=== PATIENT | male | born 1960 | race Caucasian/White ===

== ENCOUNTER → 2017-08-16 | Day surgery (SDC) | payer OTHER ==
[~2017-08-16] VITALS: Ht 182.9 cm; Wt 122.5 kg
[~2017-08-16] MED LIST: ACET2SOL7; ACETAMINOPHEN 325 MG TAB PO PRN; ANSHCS; ASPI81TA28 PO; ATEN-174 PO; ATROPINE SULFATE 0.1 MG/ML 10 ML SYR IV PRN; FENTANYL CITRATE INJ 50 MCG/1 ML 2 ML VIAL ONE; FLUT0.15; HEPARIN SOD (PORCINE) 1000 UNIT/ML 10 ML VIAL ONE; HYDR2.5C37 TOP; HYT/2 PO; LORA-741 PO; METH500T3 PO; MIDAZOLAM HCL 1 MG/ML 2ML VIAL ONE; NITROGLYCERIN/D5W 100MCG/ML 20ML SYR ONE; NXM/40 PO; NiCARDipine HCL INJ 2.5 MG/ML 10 ML AMP ONE; POLY1POW2 PO; ROSU20TA PO; SODIUM CHLORIDE 0.9% 1000ML 1,000 ML IV SCH; SODIUM CHLORIDE 0.9% 1000ML 250 ML IV PRN; TRMCR515 TOP; [UNRECOGNIZED DRUG - CODE] PO
[2017-08-16 10:28] VITALS: BP 148/88; PULSE 60; TEMP 36.8; O2SAT 98; Ht 182.9 cm; Wt 122.5 kg
--- NOTE | 2017-08-16 12:53 | History & Physical Bridge Note ---
H&P Re-Evaluation Bridge Note: I have examined the patient, reviewed the History & Physical and in the interval since the performance of the History & Physical I have noted the following changes of clinical significance: No changes noted
--- NOTE | 2017-08-16 12:54 | Procedure Note ---
Pre-Mod Sedation Assessment General Date of Moderate Sedation: Aug 16, 2017. Vital Signs: Vital Signs Past 12 Hours Date Time Temp Pulse Resp B/P (MAP) Pulse Ox O2 Delivery O2 Flow Rate FiO2 08/16/17 10:28 36.8 60 16 148/88 98 Room Air Review Airway Class: III Pre-Sedation Airway Assessment Oral Cavity: WNL Able to Visualize Vocal Cords: Yes Short Thick Neck: No Hx of Sleep Apnea: No Smoking Status: Former Smoker Mallampati Classification: Class III ASA Classification: Class III Procedure Planning Contraindications-for Mod Sed: None Yes Notes The planned sedation has been discussed with the patient and consent obtained. I have identified the patient, determined the appropriateness of sedation and have assessed the patient immediately prior to the procedure. All medicine(s) and interventions are by my order.
--- NOTE | 2017-08-16 13:13 | [facility] Post Operative Brief Note ---
Preliminary Procedure Note Procedure Date Aug 16, 2017. 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 Jorge A Schaefer Shipping Hand(s) Janes Nair Estimated Blood Loss <15cc Medication(s) Fentanyl (12.5 mcg IV), Heparin (5000u IV), Nicardipine (250mcg intraarterial after sheath insertion), Versed (1 mg IV), Lidocaine 1% (local infiltration) Preliminary Findings Right dominant coronary anatomy with large caliber vessels Smooth 30% early mid LAD stenosis with mild irregularities otherwise LCX 20% ostial taper RCA mild irregularities only LV EF65% w/o WMA EDP9 Recommendations Medical therapy and/or Counseling Specimens None Anesthesia Start 12:29 Stop 12:49 Monitor Shamar Coppola RN Procedural Complication(s) None
--- NOTE | 2017-08-16 13:22 | Cardiac Catheterization ---
Procedure Note Procedure Date Aug 16, 2017. Pre-Procedure Diagnosis CAD, Cardiothoracic Symptom AUC Score 7 Post-Procedure Diagnosis Mild CAD Procedure(s) Performed Coronary Angiography, Left Heart Cath, LV Angiography Bench Hand Machine Dr. Jorge A Schaefer Line Fisher(s) None (Janes Nair) Estimated Blood Loss <15cc Medication(s) Fentanyl (12.5mcgIV), Heparin (5000u IV), Versed (1mg IV), Lidocaine 1% (local infiltration) Summary of Findings Right dominant coronary anatomy with large caliber vessels Smooth 30% early mid LAD stenosis with mild irregularities otherwise LCX 20% ostial taper Ramus small without diease RCA mild irregularities only LV EF65% w/o WMA LV EDP9 Hemodynamics Rest Ao: 127/73/96 Final Ao: 126/76/99 LV: 131/-/9 Recommendations Medical therapy and/or Counseling Specimens None Radiation Exposure (mGy) 1216 Contrast (mls) 113 Fluids (cc crystalloids) 62 Anesthesia Start 12:29 End 12:49 Monitor Shamar Coppola Procedural Complication(s) None Disposition Handle Bender Holding/Recovery ACC Data Cardiac Status Clinical evaluation leading to the procedure CAD Presntation: Stable angina Anginal Classification: CCS III Heart Failure: No Cardiogenic Shock w/in 24Hrs: No Cardiac Arrest w/in 24Hrs: No Imaging studies past 6 months: No Stress studies past 6 months: No Standard Exercise Stress Test: No Stress Echocardiogram: No Stress Testing w/SPECT MPI: No Cardiac CTA: No Coronary Anatomy Dominant: Right Left Main (% Stenosis): Normal LAD (% Stenosis): Mid (smooth 30% early mid), Distal (mild irregularities ) D1 (% Stenosis): Normal D2 (% Stenosis): Normal Circumflex (% Stenosis): Ostial (20) OM1 (% Stenosis): Mid (large bifurcating , mild irregularities ) RCA (% Stenosis): Mid (mild irregularities ) R PDA (% Stenosis): Normal R PL1 (% Stenosis): Normal R PL2 (% Stenosis): Normal Ramus (% Stenosis): Normal Left Ventricular Angiography Mitral Regurgitation: None Diagnostic Physician's Name: Jorge A Schaefer M.D. Status: Elective Closure Device Percutaneous Entry Location: Radial Closure Device: Radial Band Recommendations: Medical therapy and/or Counseling
--- NOTE | 2017-08-16 13:25 | Discharge Instructions ---
Discharge Instructions Procedure Procedure Date: Aug 16, 2017. Reason for Visit: Chest Pain,Coronary Artery Disease. Discharge Discharge Date: Aug 16, 2017. Discharge Diagnosis: Stable, mild coronary artery disease Last Recorded Wt (Kilograms): 122.5 Anesthesia Post Anesthesia Instructions: If you have had General Anesthesia or IV Sedation: * Do not drive today. * Resume driving when surgeon permits. * Do not make important decisions or sign legal documents today. * Call surgeon for: 1. Temperature elevations greater than 101 degrees F. 2. Uncontrollable pain. 3. Excessive bleeding. 4. Persistent nausea and vomiting. 5. Medication intolerance (nausea, vomiting or rash). * For nausea and vomiting use only clear liquids such as: tea, soda, bouillon until nausea subsides, then gradually increase diet as tolerated. * If you have any concerns or questions, call your surgeon's office. If physician is unavailable and it is an emergency, call 911 or go to the nearest emergency room. Instructions Activity Recommendations: limitations as noted below Recommended Home Diet: resume previous diet Allergies: Coded Allergies: Ciprofloxacin (Unverified Allergy, Mild, anxiety, 08/16/17) Diphenhydramine (Unverified Allergy, Unknown, anxiety, 08/16/17) Pseudoephedrine (Verified Allergy, Unknown, ALTERED MENTAL STATUS, ) Triprolidine (Verified Allergy, Unknown, ALTERED MENTAL STATUS, 09/23/13) Provider Instructions ACTIVITY RECOMMENDATIONS: Excess manipulation of the wrist should be avoided for the next 24-48 hours. * No lifting over 2 pounds (approximately a 1/2 gallon of milk) with the utilized arm for 24 hours. * No strenuous activity such as bowling or tennis for 3 days. * Keep the site of the procedure covered with a bandage for 24 hours. *You may shower the day after the procedure. Do not take a tub bath or submerge the puncture site in water for the next 3 days. *Do not operate any motorized equipment for 3 days. SPECIAL CARE INSTRUCTIONS: The site may be slightly bruised and sore following your procedure. Should any of the following occur, contact the DrZan who performed your procedure. 1. Redness/inflammation, swelling, chills, or fever, or colored drainage at procedure site within 3-7 days after your procedure. 2. Coldness, discoloration, ongoing numbness, severe pain, or swelling. Expect mild tingling of hand and tenderness at the puncture site for up to three days. If this persists beyond three days, or other symptoms develop, notify the Dr. who performed your procedure. BLEEDING: If the procedure site on your wrist begins to bleed, do not panic 1. Place 1 or 2 fingers firmly just slightly above the insertion site to stop the bleeding. You may be able to feel your pulse as you hold pressure. 2. Lift your finger after 5 minutes to see if the bleeding has stopped. 3. Once the bleeding has stopped, gently wipe the wrist area clean with a bandage. * If the bleeding from your wrist does not stop after 10 minutes, or if there is a large amount of bleeding or spurting, call 911 (do not drive yourself to the hospital). SKIN IRRITATION: * You may experience some redness and/or swelling in the area where radiation was administered. If any skin irritation occurs, please contact your family physician. FOLLOW UP VISIT: Keep any scheduled doctor appointments. Follow Up Follow-up with: Dr Luis as scheduled Carol Ann Vossy Recommendations: Call your doctor if: * Temperature above 101 degrees * Pain not relieved by pain medicine ordered * There is increased drainage or redness from any incision * You have any unanswered questions or concerns. Your Doctors Instructions noted above were prepared by provider Jorge A Schaefer. Patient Signature Section: Patient Instructions Signature Page Vic Knox Patient (or Guardian) Signature/Date: I have read and understand the instructions given to me by my caregivers. Caregiver/RN/Doctor Signature/Date: The above-named patient and/or guardian has received patient instructions on this date. + Original Patient Signature Page (only) stays with chart. Please make copy for patient.
[2017-08-16 15:30] VITALS: BP 155/88; PULSE 55; O2SAT 98
== END | disposition home or self-care (01) ==
LOC: C.CATH 10:12
PROVIDERS: ATTEND Internal Medicine Cardiovascular Disease
DX: R07.9 Chest pain, unspecified (principal); G89.29 Other chronic pain; I25.118 Atherosclerotic heart disease of native coronary artery with other forms of angina pectoris; E78.5 Hyperlipidemia, unspecified; I10 Essential (primary) hypertension; I05.9 Rheumatic mitral valve disease, unspecified; E66.9 Obesity, unspecified; N40.1 Benign prostatic hyperplasia with lower urinary tract symptoms; N13.8 Other obstructive and reflux uropathy; K21.0 Gastro-esophageal reflux disease with esophagitis; G47.33 Obstructive sleep apnea (adult) (pediatric); Z82.49 Family history of ischemic heart disease and other diseases of the circulatory system; F17.220 Nicotine dependence, chewing tobacco, uncomplicated; F41.1 Generalized anxiety disorder